=== PATIENT | female | born 1930 | race Caucasian/White ===

== ENCOUNTER 2017-10-22 04:09 | Observation (INO) ==
--- NOTE | 2017-10-22 04:40 | Emergency Department Note ---
Disposition Clinical Impression: Flank pain, NSTEMI (non-ST elevated myocardial infarction) Nausea & vomiting Qualifiers: Vomiting type: unspecified Vomiting Intractability: non-intractable Qualified Code(s): R11.2 - Nausea with vomiting, unspecified Chest pain Qualifiers: Chest pain type: unspecified Qualified Code(s): R07.9 - Chest pain, unspecified Disposition: Admitted As Inpatient Condition: Fair Referrals: Britt Marina MD [Primary Care Provider] - Forms: ED Satisfaction Letter Time of Disposition: 07:04 General Adult HPI - General Chief complaint: ED Nausea/Vomiting/Diarrhea Stated complaint: n/v, rt back pain Time Seen by Provider: 10/22/17 04:23 Source: patient Mode of arrival: ambulatory Limitations: no limitations Nursing Notes Reviewed: Yes Vital Signs Reviewed: Yes - History of Present Illness HPI Narrative: 87 y.o. female presenting to the ED c/o sudden onset N/V and 5/10 R sided back pain x 2100 yesterday. Approximately an hour after onset of the back pain, she experienced an episode of mid sternal chest pain lasting approximately 15 minutes. 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 After initially subsiding, the chest pain has not returned. She reports a history of similar symptoms approximately 7 years ago but cannot recall what she was diagnosed with. She states the back pain has been constant since onset. She denies any exacerbating or relieving factors. She reports a history of A-Fib but denies any other significant cardiac history. She denies any trauma or falls recently. She denies any abd pain, urinary symptoms, diarrhea, constipation, numbness, tingling, or headache. Pt Subjective Complaint: Back pain, N/V, Chest pain Onset (ago): hour(s) Location: chest, back Radiation: non-radiation Pain Scale: 5 Consistency: constant Improves with: nothing Worsens with: nothing Associated symptoms: Reports: chest pain, diaphoresis, nausea/vomiting, shortness of breath. Denies: cough, fever/chills, headaches, loss of appetite, malaise, syncope, weakness Treatments Prior to Arrival: none - Related Data Allergies Allergy/AdvReac Type Severity Reaction Status Date / Time aspirin Allergy Rash Verified 10/22/17 04:13 All systems ED: reviewed and negative except as stated. Past Medical History - Past Medical History Attestation: Yes The following information was validated with the patient. Source: patient Medical history: Reports: atrial fibrillation, CHF, osteoporosis Physical Exam - General Limitations: no limitations General appearance: alert, in no apparent distress - Head Head exam: atraumatic, normocephalic, normal inspection - Eye Eye exam: Present: EOMI - ENT ENT exam: normal exam, normal oropharynx, mucous membranes moist - Neck Neck exam: Present: normal inspection, full ROM, trachea midline - Chest Chest inspection: Present: normal inspection, symmetric chest wall rise - Respiratory Respiratory exam: Present: normal lung sounds bilaterally - Cardiovascular Cardiovascular exam: Present: regular rate, normal rhythm, normal heart sounds - Abdominal Exam Abdominal exam: Present: soft, Non-Tender. Absent: tenderness, distention, guarding, rebound, rigidity - Extremities Exam Extremities exam: Present: normal inspection, full ROM. Absent: tenderness, pedal edema - Back Exam Back exam: Present: CVA tenderness (R), paraspinal tenderness - Neurological Exam Neurological exam: Present: alert, oriented X3 - Psychiatric Psychiatric exam: Present: normal affect, normal mood - Skin Skin exam: Present: warm, dry, intact, normal color Course Course Narrative: Patient seen and examined. Right-sided mid back tenderness. She does appear to have some degree of scoliosis and protrusion of her ribs there. With her chest pain, we will do a cardiopulmonary workup as well as chest x-ray. We will get a urine analysis to evaluate for possible signs of a UTI/renal stone. She has not had any urinary symptoms or abdominal pain. Patient is very nauseated and in pain. We will give Zofran and fentanyl to help with nausea and pain. - Reevaluation(s) Reevaluation #1: Patient's lab work shows an elevated troponin of 0.69. Suspect NSTEMI. The CT of the abdomen and pelvis shows incidental finding of a large ovarian cyst with recommended ultrasound follow-up. We will admit for NSTEMI. Patient started on heparin drip and given aspirin. I discussed these findings with the hospitalist who has accepted patient for admission. Time: 07:03 Vital Signs Temperature 98.2 F 10/22/17 04:13 Pulse Rate 67 10/22/17 04:13 Respiratory Rate 16 10/22/17 04:13 Blood Pressure 144/86 10/22/17 04:13 O2 Sat by Pulse Oximetry 95 10/22/17 04:13 Temperature 98.2 F 10/22/17 04:14 Pulse Rate 69 10/22/17 06:16 Respiratory Rate 15 10/22/17 06:16 Blood Pressure 130/86 10/22/17 06:16 O2 Sat by Pulse Oximetry 96 10/22/17 06:16 Oxygen Delivery Oxygen Delivery Nasal Cannula Medical Decision Making - Medical Records Medical records reviewed: Yes I reviewed the patient's medical records. - Lab Data Lab results reviewed: Yes I reviewed the patient's lab results. Result diagrams: 10/22/17 05:18 10/22/17 05:18 Lab Results 10/22/17 10/22/17 Range/Units 05:18 05:18 WBC 7.2 (4.3-11.1) K/mcL RBC 3.48 L (3.82-4.97) M/mcL Hgb 11.1 L (11.5-15.4) g/dL Hct 32.6 L (35.3-44.9) % MCV 93.7 (83.0-100.0) fL MCH 31.9 (28.0-33.3) pg MCHC 34.0 (31.6-35.5) g/dL RDW 12.1 (11.5-14.5) % Plt Count 188 (140-400) K/mcL MPV 9.7 (9.4-12.4) fL Sodium 129 L (136-145) mEq/L Potassium 3.9 (3.5-5.1) mEq/L Chloride 100 (98-107) mEq/L Troponin I 0.69 H* (< 0.04) ng/mL - Radiology Data Radiology results reviewed: Yes I reviewed the patient's radiology results. Chest X-Ray 10/22/17 05:01 IMPRESSION: Right basilar atelectasis or pneumonia with suspected right pleural effusion. D/ / Fred Costa MD / Fred Costa MD Interpreting Provider: Fred Costa MD Abdomen/Pelvis CT 10/22/17 05:20 IMPRESSION: 1. Diverticulosis without scan evidence for diverticulitis. 2. Cholelithiasis without scan evidence for acute cholecystitis. 3. Left ovarian cyst measures 4.5 cm. Prompt pelvic ultrasound is recommended for further evaluation. D/ / Fred Costa MD / Fred Costa MD Interpreting Provider: Fred Costa MD - EKG Data EKG #1 EKG attestation: Yes I reviewed and interpreted this EKG. EKG results narrative: EKG done at 625 shows atrial fibrillation with a rate of [address] elevation. Mild ST depression noted in leads V5 and V6. No prior EKG for comparison. Attestation Statement - Attestation Attestation: Dr Dunlap note: Patient has been seen in conjunction with resident Dr. Sofía Vásquez; please see her charting for complete documentation. Assessment [id number] time with the patient and agree with the patient's treatment and disposition. Rt flank pain w / n/v at home resolved; no chest pain on arrival , rather her complaint was n/ v /d and had chest pain only around 9 pm last night; troponin noted; admitted to the hospitalist
[2017-10-22] MEDS ORDERED: 0.9 % Sodium Chloride 1,000 ML IV ONE (05:00)
[2017-10-22] MEDS ORDERED: Ondansetron 4 MG/2 ML VIAL IVP ONE (05:01)
[2017-10-22] MEDS ORDERED: *HR* FentaNYL (PF) 100 MCG/2 ML VIAL IVP ONE (05:10)
[2017-10-22 05:35] LABS: Hematocrit 32.6 % (35.3-44.9); Hemoglobin 11.1 g/dL (11.5-15.4); Mean Corpuscular Hemoglobin 31.9 pg (28.0-33.3); Mean Corpuscular Volume 93.7 fL (83.0-100.0); Mean Platelet Volume 9.7 fL (9.4-12.4); Platelet Count 188 K/mcL (140-400); Red Blood Count 3.48 M/mcL (3.82-4.97); Red Cell Distribution Width 12.1 % (11.5-14.5)
[2017-10-22 06:12] LABS: Chloride 100 mEq/L (98-107); Potassium 3.9 mEq/L (3.5-5.1); Sodium 129 mEq/L (136-145); Troponin I 0.69 ng/mL (< 0.04)
[2017-10-22] MEDS ORDERED: Aspirin 325 MG TABLET PO ONE (06:21)
[2017-10-22] MEDS ORDERED: *HR* Heparin 5,000 UNIT/ML VIAL IVP ONE (06:30)
[2017-10-22] MEDS ORDERED: *HR* Heparin 5,000 UNIT/ML VIAL IVP PRN ×2 (06:30)
[2017-10-22 07:50] LABS: Heparin anti-factor XA UFH 0.04 IU/mL (0.30-0.70)
[2017-10-22 08:07] LABS: Bilirubin,Urine Negative (Negative); Blood,Urine Negative (Negative); Clarity,Urine Clear (Clear); Color,Urine Yellow (Yellow); Glucose,Urine (UA) Normal (Normal); Ketones,Urine 40 mg/dL (Negative); Leukocyte Esterase,Urine Small (Negative); Nitrite,Urine Negative (Negative); PH,Urine 6.5 pH Units (5.0-8.0); Protein,Urine 30 mg/dL (Neg-Trace); Specific Gravity,Urine 1.022 (1.010-1.025); Urobilinogen,Urine Normal (Normal)
[2017-10-22 08:10] LABS: Bacteria,Urine None Seen per hpf (None-Few); Hyaline Casts,Urine None Seen per lpf (None-Few); Squamous Epithelial Cell,Urine Many per lpf (None-Few)
[2017-10-22 08:12] LABS: BUN/Creatinine Ratio 21 (6-26); Blood Urea Nitrogen 13 mg/dL (8-23); Calcium 8.5 mg/dL (8.6-10.3); Carbon Dioxide 18 mEq/L (23-29); Glucose 127 mg/dL (70-105); Osmolality,Calculated 270 (280-300); eGFR For Non-African Americans > 60 (> 60)
[2017-10-22] MEDS: Heparin 25,000 UNIT/500 ML D5W 25,000 UNIT/500 ML BAG IVC SCH (08:42)
[2017-10-22] MEDS ORDERED: Naloxone 0.4 MG/ML INJ IVP PRN (12:53)
--- NOTE | 2017-10-22 13:29 | Internal Med History&Physical ---
Date of Encounter: 10/22/17 Time of Encounter: 12:20 Internal Medicine - H&P: HPI Chief complaint: Back and Chest Pain Admitted From: Home Plans for Post Hospital Care: Home History of present illness: Ms. Hernandez is a 87 year old female with past medical history significant for atrial fibrillation, congestive heart failure, and hypothyroidism who presents for complaints of 5/10 constant lower back pain starting last night at 21:00 accompanied by short duration of about 15 minutes squeezing 6/10 chest pain across her chest that she described as being squeezed by a vice focus puller. Associated symptoms included shortness of breath, diaphoresis, nausea, and vomiting. No exacerbating or alleviating factors. States she drank water and took charcoal tablets at home without improvement. Patient denies any current pain, shortness of breath, or nausea since receiving medications in ER. Patient and daughter reports they think patient has a DNR at home but is willing to remain full code until DNR document provided to hospital. Has been conservative with past treatments and medications including taking no medication for atrial fibrillation or heart failure. Is open to discussion with cardiology and continuing current treatment at this time but is likely to continue conservative measures including not starting Lipitor and Beta Serene which we discussed. Discussed patient with Dr Telles. Past Med Surg Social Fam HX - Past Medical History Medical history: atrial fibrillation, CHF, osteoporosis Psychiatric history: no psych history - Past Surgical History Additional surgical history: tubal, hand surgery right hand - Social History Smoking Status: Never smoker Smokeless Tobacco Status: Yes Alcohol use: none Drug use: none - Family History Mother Living Status: Age at : 76 Cause of : [place] Hx Family Cardiac Disorders: Yes Hx Family Respiratory Disorders: No Hx Family Cancer: No Hx Family GI Disorders: No Hx Family Genitourinary Disorders: No Hx Family Endocrine Disorder: No Hx Family Musculoskeletal Disorders: No Hx Family Neuromuscular Disorders: No Hx Family Neurologic Disorders: No Hx Family HEENT Disorders: No Hx Family Autoimmune Disorders: No Hx Family Reproductive Disorders: No Hx Family Psychosocial Disorders: No Hx Family Medical Disorders: No Father Age at : 92 Cause of : failure to thirve Hx Family Cardiac Disorders: No Hx Family Respiratory Disorders: No Hx Family Cancer: No Hx Family GI Disorders: No Hx Family Genitourinary Disorders: No Hx Family Endocrine Disorder: No Hx Family Musculoskeletal Disorders: No Hx Family Neuromuscular Disorders: No Hx Family Neurologic Disorders: No Hx Family HEENT Disorders: No Hx Family Autoimmune Disorders: No Hx Family Reproductive Disorders: No Hx Family Psychosocial Disorders: No Hx Family Medical Disorders: No Internal Medicine - H&P: Meds Levothyroxine Sodium [Levoxyl] 112 mcg PO DAILY 10/22/17 [History] 3 Allergy/AdvReac Type Severity Reaction Status Date / Time aspirin Allergy Rash Verified 10/22/17 04:13 All Systems PM: A 10-system review of systems was performed and is negative for pertinent findings except as documented above in the HPI. - Constitutional Vitals: Temp Pulse Resp BP Pulse Ox 97.5 F L 65 14 127/82 97 10/22/17 09:35 10/22/17 09:35 10/22/17 09:35 10/22/17 09:35 10/22/17 09:35 Exam: General: Alert and oriented. Skin:Normal color, no rash, no lesions. HEENT:EOM, pupils equal, round and reactive. Cardiovascular:Irregular rate, no rubs, murmurs or gallops. No JVD. Lungs:Normal breath sounds, no wheezes or crackles. Abdomen:Soft, non-tender, no rigidity. Extremities:No deformity, no edema or tenderness, no joint swelling or clubbing. Neurological:Normal cognition and motor skills. Pulses:Carotid and radial pulses normal +2. Rest of the physical exam is non contributory. Internal Med - H&P Results - Labs CBC & Chem 7: 10/22/17 05:18 10/22/17 05:18 - Assessment and plan (1) NSTEMI (non-ST elevated myocardial infarction) Current Visit: Yes Status: Acute Assessment and plan: Cardiology consulted. Patient refusing Beta Serene and Statin at this time. Continue heparin drip. Serial troponins ordered. Echocardiogram ordered. Cardiac diet. Continuous conveyor monitor. Repeat labs in a.m. (2) Ovarian cyst Current Visit: Yes Status: Acute Assessment and plan: Incidental Ovarian Cyst identified on CT. Follow up pelvic ultrasound ordered. Qualifiers: Laterality: unspecified laterality Qualified Code(s): N83.209 - Unspecified ovarian cyst, unspecified side (3) Heart failure Current Visit: Yes Status: Chronic Assessment and plan: Echocardiogram ordered. BNP in a.m. Qualifiers: Heart failure type: unspecified Heart failure chronicity: unspecified Qualified Code(s): I50.9 - Heart failure, unspecified (4) Atrial fibrillation Current Visit: Yes Status: Chronic Assessment and plan: Continuous conveyor monitor. Qualifiers: Atrial fibrillation type: chronic Qualified Code(s): I48.2 - Chronic atrial fibrillation - Time Spent With Patient Total time spent is greater than 50% in coordination of care (as documented) at patient's floor/unit and/or counseling patient:
--- NOTE | 2017-10-22 15:52 | Cardiology Consult Note ---
<Rafy Valentin - Last Filed: 10/22/17 15:48> Date of Encounter: 10/22/17 Time of Encounter: 15:49 Assessment and Plan (1) NSTEMI (non-ST elevated myocardial infarction) Current Visit: Yes Status: Acute Patient presents with chest tightness at home associated with nausea. Also c/o severe right low back pain. Troponin elevated at 0.69, 0.52. Findings and recommendations reviewed with patient and family. LHC R/B/A verses medical management. Patient declines LHC or any medications. Declines TTE, EKG or any testing. She is agreeable to IV heparin gtt for 24-48 hours. Consider palliative care consult. Patient would like to be DNR. Cardiology will sign off. (2) Atrial fibrillation Current Visit: Yes Status: Chronic H/o PAF. Reports that she was told she needed PPM at one point and declined. Declines medications. Telemetry shows atrail fibrillation avg HR 60 bpm, lowest HR 40 bpm, maximum HR 96 bpm. Qualifiers: Atrial fibrillation type: chronic Qualified Code(s): I48.2 - Chronic atrial fibrillation Discussion w patient/family: The assessment and plan as outlined above was discussed with the patient and/or family members who expressed understanding and agreement. All questions were answered. Thank you for involving us in the care of your patient. Please call with any questions. History of Present Illness Consult date: 10/22/17 Requesting physician: Roderick De Leon Consult reason: NSTEMI Chief complaint: Chest pain, SOB, and low back pain History of present illness: Ms. Hernandez is a 87 year old female with past medical history of hypothyroidsim and atrial fibrillation. She presented to the hospital with c/o severe right flank pain, nausea, chest tightness for 15 min that occurred at rest. While in the ED she was given medication for pain and nausea when she developed SOB. Initial troponin was found to be elevated at 0.69 and cardiology was consulted for NSTEMI. CT abdomen pelvis with no acute findings, she was noted to have diverticulosis, cholelitiasis with no cholecystitis, and left ovarian cyst. On my exam she is pain free. States she is feeling back to her usual state of health. She declines any testing and has her living will at bedside stating she is a DNRCC. Past Med Surg Social Fam HX - Past Medical History Medical history: atrial fibrillation Psychiatric history: no psych history - Past Surgical History Additional surgical history: tubal, hand surgery right hand - Social History Smoking Status: Never smoker Smokeless Tobacco Status: Yes Alcohol use: none Drug use: none - Family History Mother Living Status: Age at : 76 Cause of : [place] Hx Family Cardiac Disorders: Yes Hx Family Respiratory Disorders: No Hx Family Cancer: No Hx Family GI Disorders: No Hx Family Genitourinary Disorders: No Hx Family Endocrine Disorder: No Hx Family Musculoskeletal Disorders: No Hx Family Neuromuscular Disorders: No Hx Family Neurologic Disorders: No Hx Family HEENT Disorders: No Hx Family Autoimmune Disorders: No Hx Family Reproductive Disorders: No Hx Family Psychosocial Disorders: No Hx Family Medical Disorders: No Father Age at : 92 Cause of : failure to thirve Hx Family Cardiac Disorders: No Hx Family Respiratory Disorders: No Hx Family Cancer: No Hx Family GI Disorders: No Hx Family Genitourinary Disorders: No Hx Family Endocrine Disorder: No Hx Family Musculoskeletal Disorders: No Hx Family Neuromuscular Disorders: No Hx Family Neurologic Disorders: No Hx Family HEENT Disorders: No Hx Family Autoimmune Disorders: No Hx Family Reproductive Disorders: No Hx Family Psychosocial Disorders: No Hx Family Medical Disorders: No Medications and Allergies Levothyroxine Sodium [Levoxyl] 112 mcg PO DAILY 10/22/17 [History] 3 Allergy/AdvReac Type Severity Reaction Status Date / Time aspirin Allergy Rash Verified 10/22/17 04:13 All Systems Review: The remainder of the systems were reviewed and are negative Physical Examination Vital Signs, Last 4 Hours Temp Pulse Resp BP Pulse Ox 10/22/17 15:09 98.0 F 55 15 108/71 95 General: Conversant, No Apparent Distress HEENT: Atraumatic, Normocephaly, Mucus Membranes Moist Neck: No JVD, Normal carotid pulses Cardiac: Reg Rate and Rhythm, Normal S1 and S2, No Murmur Lungs: Normal Breath Sounds, No Wheeze, Rales, Rhonchi Neuro: Alert and responsive, No focal deficits noted Abdomen: Soft, Non-Tender Skin: No rashes noted on visualized skin Musculoskeletal: No Chest Wall Tenderness Extremities: No Clubbing, No Cyanosis, No Edema, Normal Pulses Results 10/22/17 05:18 10/22/17 05:18 Lab Results 10/22/17 14:27 Troponin I 0.52 H* - Imaging and Cardiology Chest Xray: report reviewed Consult Discharge Plan - Plan Referrals: Britt Marina MD [Primary Care Provider] - <Deo Melvin - Last Filed: 10/23/17 12:01> Date of Encounter: 10/23/17 - Attending Attestation I have personally performed a face to face evaluation on this patient. I have reviewed and agree with the care plan. History and Exam by me shows: Presents with NSTEMI, currently stable. Have discussed medical mgmt. and invasive evaluation. At this point she refuses all therapy. Assessment and Plan Discussion w patient/family: The assessment and plan as outlined above was discussed with the patient and/or family members who expressed understanding and agreement. All questions were answered. Thank you for involving us in the care of your patient. Please call with any questions. History of Present Illness History of present illness: Ms. Hernandez is a 87 year old female All Systems Review: The remainder of the systems were reviewed and are negative Physical Examination Vital Signs, Last 4 Hours Temp Pulse Resp BP Pulse Ox 10/23/17 10:49 97.3 F L 56 14 115/61 95 Results 10/23/17 03:31 10/22/17 05:18 Lab Results 10/22/17 10/22/17 10/23/17 14:27 21:33 03:31 WBC 5.7 Hgb 10.8 L Hct 32.2 L Plt Count 180 Troponin I 0.52 H* 0.80 H* B-Natriuretic Peptide 10/23/17 03:31 WBC Hgb Hct Plt Count Troponin I B-Natriuretic Peptide 615 H
--- NOTE | 2017-10-22 22:16 | Event Note ---
Date of Encounter: 10/22/17 Time of Encounter: 22:10 Patient requesting to become DNRCC Arrest Status. From completed with patient and daughter at bedside. Form attached to patients chart on nursing unit. Code status updated in [facility]. Nurse just notified of third troponin of 0.80, patient denying any current chest pain, and stating she feels "great" right now. Will continue heparin drip per cardiology recommendation and patients agreement.
[2017-10-23 04:18] LABS: Basophils % 0.4 %; Eosinophils # 0.6 K/mcL (0.0-0.6); Eosinophils % 10.6 %; Hematocrit 32.2 % (35.3-44.9); Hemoglobin 10.8 g/dL (11.5-15.4); Immature Granulocytes % 0.2 % (0-4); Lymphocytes # 1.6 K/mcL (0.6-4.6); Lymphocytes % 27.3 %; Mean Corpuscular HGB Conc 33.5 g/dL (31.6-35.5); Mean Corpuscular Volume 95.3 fL (83.0-100.0); Mean Platelet Volume 9.9 fL (9.4-12.4); Monocytes # 0.5 K/mcL (0.0-1.3); Monocytes % 7.9 %; Platelet Count 180 K/mcL (140-400); Red Blood Count 3.38 M/mcL (3.82-4.97); Red Cell Distribution Width 12.2 % (11.5-14.5); Segmented Neutrophils % 53.6 %
[2017-10-23] MEDS: Heparin 25,000 UNIT/500 ML D5W 25,000 UNIT/500 ML BAG IVC SCH (14:35)
--- NOTE | 2017-10-23 14:36 | Internal Med Progress Note ---
Hospitalist Progress Note - Encounter Date of Encounter: 10/23/17 Time of Encounter: 14:33 - Subjective Interval History: no acute changes, denies any chest, shoulder or back pain which were present on admission. Discussed plan of care. Patient has requested to speak to cardio regarding starting medical management which she was initially against starting. Will consult cardio for further discussion. - Exam Vitals: Temp Pulse Resp BP Pulse Ox 97.3 F L 56 14 115/61 95 10/23/17 10:49 10/23/17 10:49 10/23/17 10:49 10/23/17 10:49 10/23/17 10:49 Exam: PHYSICAL EXAMINATION: GENERAL: The patient is elderly appearing female in no apparent distress, alert and oriented 3 HEENT: Head is normocephalic and atraumatic. Extraocular muscles are intact. Pupils are equal, round, and reactive to light and accommodation NECK: Supple. No carotid bruits. No lymphadenopathy or thyromegaly. LUNGS: Clear to auscultation AP and L. HEART: Irregular rhythm without murmur, rubs or gallops. ABDOMEN: Soft, nontender, and nondistended. Positive bowel sounds. No hepatosplenomegaly was noted. EXTREMITIES: Without any cyanosis, clubbing, rash, lesions or edema. Bilateral lower extremities 2+ pulses NEUROLOGIC: Cranial nerves II through XII are grossly intact. - Assessment and Plan (1) NSTEMI (non-ST elevated myocardial infarction) Current Visit: Yes Status: Acute Assessment and Plan: Presented with atypical chest pain, pain in mid back, bilateral shoulders with weakness and fatigue Admitted to have elevated troponin, serial cardiac enzymes with peak of 0.80 Cardio consulted for NSTEMI, discussed with patient whether to undergo left heart cath versus medical management Patient declined left heart cath and medical management. However, this morning during my assessment the patient is not interested in medical management Cardio to discuss Starting Beta Serene and Statin and plavix; Continue heparin drip.as per cardio recommendations Echocardiogram pending Cardiac diet. Continuous monitoring analyst. Repeat labs in a.m. (2) Ovarian cyst Current Visit: Yes Status: Acute Assessment and Plan: Incidental Ovarian Cyst identified on CT. Follow up pelvic ultrasound ordered -IMPRESSION: 1. Cystic left adnexal mass measuring 4.9 x 4.2 x 3.5 cm. This is an abnormal finding in a postmenopausal patient. Annual ultrasound follow-up is recommended. 2. Abnormal thickened endometrium measuring 9 mm with fluid within the endometrial canal, also an abnormal finding within a postmenopausal patient. Consider tissue sampling for further evaluation. d/w patient; discussed the need for tissue sampline; Ensure Follow-up appointment scheduled prior to discharge with [facility] (3) Atrial fibrillation Current Visit: Yes Status: Chronic Assessment and Plan: Continuous monitoring analyst. Heart rate remains irregular, bradycardic with heart rate in the 50s. Hemodynamically stable. Per review average 12 hour heart rate 57. Patient not on anticoagulation at home. Currently on heparin drip with non-ST elevated IA (4) Heart failure Current Visit: Yes Status: Chronic Assessment and Plan: Echocardiogram ordered-results pending BNP 615 DVT Prophylaxis: Heparin drip - Time Spent with Patient Total time spent is greater than 50% in coordination of care (as documented) at patient's floor/unit and/or counseling patient: less than 15 minutes Plan of Care Discussed with: patient Internal Medicine: Result - Labs CBC & Chem 7: 10/23/17 03:31 10/22/17 05:18 Labs: Short CBC 10/23/17 Range/Units 03:31 WBC 5.7 (4.3-11.1) K/mcL Hgb 10.8 L (11.5-15.4) g/dL Hct 32.2 L (35.3-44.9) % Plt Count 180 (140-400) K/mcL Neutrophils # 3.0 (1.6-8.9) K/mcL Cardiac Enzymes 10/22/17 10/22/17 Range/Units 14:27 21:33 Troponin I 0.52 H* 0.80 H* (< 0.04) ng/mL - ABG Interpretation ABG results: PT/INR, D-dimer PT 11.0 Seconds (9.4-12.1) 10/22/17 07:04 - Impressions Impressions Pelvis Ultrasound 10/22/17 19:00 IMPRESSION: 1. Cystic left adnexal mass measuring 4.9 x 4.2 x 3.5 cm. This is an abnormal finding in a postmenopausal patient. Annual ultrasound follow-up is recommended. 2. Abnormal thickened endometrium measuring 9 mm with fluid within the endometrial canal, also an abnormal finding within a postmenopausal patient. Consider tissue sampling for further evaluation. D/ / 10/22/2017 21:18:56 Elfego Jacob MD / el Interpreting Provider: Elfego Jacob MD - VTE Reasons for not Prescribing Prophylaxis: Not indicated-Anticoagulated or INR therapeutic Consult Discharge Plan - Plan Referrals: Britt Marina MD [Primary Care Provider] - (2) Ovarian cyst Qualifiers: Laterality: unspecified laterality Qualified Code(s): N83.209 - Unspecified ovarian cyst, unspecified side (3) Atrial fibrillation Qualifiers: Atrial fibrillation type: chronic Qualified Code(s): I48.2 - Chronic atrial fibrillation (4) Heart failure Qualifiers: Heart failure type: unspecified Heart failure chronicity: unspecified Qualified Code(s): I50.9 - Heart failure, unspecified
--- NOTE | 2017-10-23 16:38 | Cardiology Progress Note ---
Date of Encounter: 10/23/17 Time of Encounter: 16:00 Assessment and Plan (1) NSTEMI (non-ST elevated myocardial infarction) Current Visit: Yes Status: Acute Patient presents with chest tightness at home associated with nausea. Also c/o severe right low back pain. Troponin elevated at 0.69, 0.52, 0.80. Findings and recommendations reviewed with patient and family. [facility] R/B/A verses medical management. Patient declines LHC. She initially declined medication but is now agreeable to plavix. Start plavix now. Heparin gtt for 48 hours. No asa due to allergy. No BB due to bradycardia. TTE was reordered by primary team. (2) Atrial fibrillation Current Visit: Yes Status: Chronic H/o PAF. Reports that she was told she needed PPM at one point and declined. Declined joint terminal attack controller AC. Telemetry shows atrail fibrillation avg HR 60 bpm, lowest HR 51 bpm, maximum HR 96 bpm. Qualifiers: Atrial fibrillation type: chronic Qualified Code(s): I48.2 - Chronic atrial fibrillation Discussion w patient/family: The assessment and plan as outlined above was discussed with the patient and/or family members who expressed understanding and agreement. All questions were answered. Thank you for involving us in the care of your patient. Please call with any questions. Subjective Principal diagnosis: NSTEMI Interval history: Denies pain or SOB. Discussed with family and is now willing to start plavix and do echocardiogram. Objective Vital Signs Temp Pulse Resp BP Pulse Ox 10/23/17 10:49 97.3 F L 56 14 115/61 95 10/23/17 06:30 97.6 F 64 15 126/77 96 10/23/17 02:59 98.0 F 51 14 110/67 96 10/22/17 22:36 98.0 F 50 16 114/69 96 Intake and Output 10/23/17 10/23/17 10/23/17 07:59 15:59 23:59 Intake Total 896 / 896 311 / 311 Output Total 400 / 400 Balance 496 / 496 311 / 311 Intake: IV Fluids Heparin 25,000 UNIT/500 ML D5W 25,000 unit In 500 ml @ 12 UNIT /KG/HR 15.513 mls/hr IVC .Q24H GEREMIAS Rx#:[id number] Oral 800 / 800 240 / 240 Output: Urine 400 / 400 Other: Meal water pitcher refilled Lunch Percent of Meal Consumed 100% Weight 67.8 kg Patient Weight 10/23/17 23:59 Weight 67.8 kg General: Conversant, No Apparent Distress HEENT: Atraumatic, Normocephaly, Mucus Membranes Moist Neck: No JVD, Normal carotid pulses Cardiac: Reg Rate and Rhythm, Normal S1 and S2, No Murmur Lungs: Normal Breath Sounds, No Wheeze, Rales, Rhonchi Neuro: Alert and responsive, No focal deficits noted Abdomen: Soft, Non-Tender Skin: No rashes noted on visualized skin Musculoskeletal: No Chest Wall Tenderness Extremities: No Clubbing, No Cyanosis, No Edema, Normal Pulses Results 10/23/17 03:31 10/22/17 05:18 Lab Results 10/22/17 10/23/17 10/23/17 21:33 03:31 03:31 WBC 5.7 Hgb 10.8 L Hct 32.2 L Plt Count 180 Troponin I 0.80 H* B-Natriuretic Peptide 615 H - VTE Reasons for not Prescribing Prophylaxis: Not indicated-Anticoagulated or INR therapeutic Consult Discharge Plan - Plan Referrals: Britt Marina MD [Primary Care Provider] -
[2017-10-24 07:42] VITALS: BP 128/73
--- NOTE | 2017-10-24 11:44 | Electrocardiograph Report ---
[place] [address] Test Date: 2017-10-22 Pat Name: Abraham Hernandez Department: EXAM4 Room: 3B43 Gender: F Beam Racker: : 1930 Requested By: Osman Dunlap Order Number: [id number] Reading MD: Ceci Cobb Measurements Intervals [place] Rate: 72 P: FL: QRS: 233 QRSD: 91 T: 118 QT: 441 QTc: 483 Interpretive Statements Right and left arm electrode reversal, interpretation assumes no reversal Recommend repeat ECG. Atrial fibrillation Low voltage, extremity leads Possible anteroseptal infarct, age indeterminate Borderline ST depression, anterolateral leads Electronically Signed On 10-24-2017 11:42:53 EDT by Ceci Cobb
--- NOTE | 2017-10-24 11:47 | Electrocardiograph Report ---
[address] [place] [address] Test Date: 2017-10-22 Pat Name: Abraham Hernandez Department: EXAM4 Room: 3B43 Gender: F Deliverer Food: : 1930 Requested By: Wilder Telles Order Number: [id number] Reading MD: Ceci Cobb Measurements Intervals [place] Rate: 73 P: [place]: QRS: 240 QRSD: 90 T: 80 QT: 414 QTc: 457 Interpretive Statements Atrial fibrillation Unusual axis, suspect limb lead reversal Probable lateral infarct, age indeterminate Anteroseptal infarct, old Electronically Signed On 10-24-2017 11:46:33 EDT by Ceci Cobb
--- NOTE | 2017-10-24 11:53 | Discharge Summary ---
- NOTES TO OUTPATIENT PROVIDER Notes to Outpatient Provider: Presented with non-ST elevated myocardial infarction. Troponins peaked at 0.80. Discussed [facility] R/B/A versus medical management, patient opting for medical management only, agreeable to Plavix. Starting Plavix upon discharge. In addition to this the patient was found to have ovarian cyst and endometrial stripe thickening. Cystic left adnexal mass measuring 4.9 x 4.2 x 3.5 cm, this is abnormal findings in a postmenopausal patient. Additionally findings of abnormal thickened endometrium measuring 9 mm with fluid within the endometrial canal, also abnormal, consider tissue sampling please ensure follow-up with ENGAGEMENT SPECIALIST Orders not resulted at time of discharge: Pending orders 10/22/17 06:25 ECG 12 lead ECG [ECG] Routine 10/23/17 04:00 Basic Metabolic Panel AM 0400 Date of Encounter: 10/24/17 Time of Encounter: 11:46 - Discharge Diagnosis (1) NSTEMI (non-ST elevated myocardial infarction) Priority: Primary Status: Acute Assessment and Plan: Presented with atypical chest pain, pain in mid back, bilateral shoulders with weakness and fatigue Admitted to have elevated troponin, serial cardiac enzymes with peak of 0.80 Cardio consulted for NSTEMI, discussed with patient whether to undergo left heart cath versus medical management Patient declined left heart cath and medical management. However, this morning during my assessment the patient is not interested in medical management Cardio seeing in consultation throughout stay, has signed off, recommendations to start Plavix daily. Continue heparin drip.as per cardio recommendations Echocardiogram-EF 60%, indeterminate DD, mildly dilated RV with normal function , severe biatrial enlargement, mild MR, mild AR, mild-moderate tricuspid regurg , mild pulmonic regurg, no PHTN Cardiac diet (2) Ovarian cyst Priority: Secondary Status: Acute Assessment and Plan: Incidental Ovarian Cyst identified on CT. Follow up pelvic ultrasound ordered -IMPRESSION: 1. Cystic left adnexal mass measuring 4.9 x 4.2 x 3.5 cm. This is an abnormal finding in a postmenopausal patient. Annual ultrasound follow-up is recommended. 2. Abnormal thickened endometrium measuring 9 mm with fluid within the endometrial canal, also an abnormal finding within a postmenopausal patient. Consider tissue sampling for further evaluation. d/w patient; discussed the need for tissue sampline; Ensure Follow-up appointment scheduled prior to discharge with ENGAGEMENT SPECIALIST Qualifiers: Laterality: unspecified laterality Qualified Code(s): N83.209 - Unspecified ovarian cyst, unspecified side (3) Atrial fibrillation Priority: Secondary Status: Chronic Qualifiers: Atrial fibrillation type: chronic Qualified Code(s): I48.2 - Chronic atrial fibrillation (4) Heart failure Priority: Secondary Status: Chronic Qualifiers: Heart failure type: unspecified Heart failure chronicity: unspecified Qualified Code(s): I50.9 - Heart failure, unspecified Hospital course: Ms. Hernandez is a 87 year old female who presented with a non-ST elevated AR. The patient was offered left heart catheter with a/R/B however, declined. Instead patient is opted for medical management therapy. He was seeing in consultation and this was discussed with cardiology. Patient instead amendable to taking Plavix for medical management. She will have follow-up with cardiology in 2-3 weeks. Follow-up with PCP upon discharge for further evaluations. Additionally, the patient was found to have adnexal cyst as well as endometrial stripe thickening and will need tissue sampling from ENGAGEMENT SPECIALIST. Please ensure follow-up. Discharge discussed with: patient, family, nurse, sap security consultant - Time Spent with Patient Total time spent providing and/or coordinating discharge services: Less than 30 minutes - Discharge Medications Prescriptions: Clopidogrel [Plavix] 75 mg PO DAILY 30 Days #30 tablet Home Medications: Levothyroxine Sodium [Levoxyl] 112 mcg PO DAILY 10/22/17 [History] Clopidogrel [Plavix] 75 mg PO DAILY 30 Days #30 tablet 10/24/17 [Rx] Allergies/Adverse Reactions: 3 Allergy/AdvReac Type Severity Reaction Status Date / Time aspirin Allergy Rash Verified 10/22/17 04:13 Date of admission: 10/22/17 08:18 Primary care physician: Britt Marina MD Consults: 10/22/17 10:41 Consult to Tempering Machine Operator [CONS] Routine Reason for SW Consult: may need home services. 10/22/17 12:57 Consult to Physician [CONS] Routine Consulting Provider: Deo Melvin Reason for Consult: NSTEMI. Call Completed: Yes 10/23/17 14:20 Consult to Cardiology [CONS] Routine Comment: Consulting Provider: Cardiology Maria R Reason for Consult: AR Time Notified: 14:21 Call Completed: Yes Discharging clinician: Toy J Godfrey Anticipated date of discharge: 10/24/17 - Constitutional Vitals: Temp Pulse Resp BP Pulse Ox 97.6 F 69 18 128/73 97 10/24/17 07:35 10/24/17 07:35 10/24/17 07:35 10/24/17 07:35 10/24/17 07:35 Exam: PHYSICAL EXAMINATION: GENERAL: The patient is elderly appearing female in no apparent distress, alert and oriented 3 HEENT: Head is normocephalic and atraumatic. Extraocular muscles are intact. Pupils are equal, round, and reactive to light and accommodation NECK: Supple. No carotid bruits. No lymphadenopathy or thyromegaly. LUNGS: Clear to auscultation AP and L. HEART: Irregular rhythm, without murmurs rubs or gallops. ABDOMEN: Soft, nontender, and nondistended. Positive bowel sounds. No hepatosplenomegaly was noted. EXTREMITIES: Without any cyanosis, clubbing, rash, lesions or edema. Bilateral lower extremities 2+ pulses NEUROLOGIC: Cranial nerves II through XII are grossly intact. - Patient Status Disposition: Home, Self-Care Condition: Fair Functional capacity at discharge: independent ambulation Overall status at discharge: patient is progressing back to baseline - Discharge Instructions Instructions: Chest Pain (DC), Myocardial Infarction (DC), Atrial Fibrillation (DC) Follow Up With: Britt Marina MD [Primary Care Provider] - - Diet and Activity Activity: increase activity as tolerated, resume usual activities as tolerated Diet: diabetic diet, low fat, low cholesterol, low salt diet - VTE Reasons for not Prescribing Prophylaxis: Not indicated-Anticoagulated or INR therapeutic
== END 2017-10-24 13:05 | disposition home or self-care (01) ==
LOC: EMEROOARM 04:09 → 3BNU 04:09
PROVIDERS: ADMIT Internal Medicine; ATTEND Internal Medicine